=== PATIENT | male | born 1980 | race Caucasian/White ===

== ENCOUNTER 2017-07-07 01:51 | Emergency (ER) | payer OTHER ==
[2017-07-07] MEDS: IV NORMAL SALINE 1000ML BAG 1,000 ML IV (02:30)
[2017-07-07] MEDS: ONDANSETRON PF 4 MG/2 ML VIAL. IV ×2 (02:31→05:19)
[2017-07-07] MEDS: MORPHINE SULFATE 4 MG/ML DISP.SYRIN. IV/SQ (02:31)
[2017-07-07 02:44] LABS: ADD MAN DIFF? NO
[2017-07-07 02:46] LABS: BASO # 0.1 x10^3/uL (0.0-0.2); BASO % 1 % (0-3); EOS # 0.3 x10^3/uL (0.0-0.7); EOS % 2 % (0-3); HEMATOCRIT 45.2 % (39.0-53.0); LYMPH # 1.2 x10^3/uL (1.0-4.8); LYMPH % 9 % (24-48); MEAN CORPUSCULAR HEMOGLOBIN 26 pg (25-35); MEAN CORPUSCULAR HGB CONC 33 g/dL (31-37); MEAN CORPUSCULAR VOLUME 79 fL (79-100); MONO # 0.9 x10^3/uL (0.0-1.1); MONO % 7 % (0-9); NEUT # 11.3 x10^3uL (1.8-7.7); NEUT % 82 % (31-73); PLATELET COUNT 284 x10^3/uL (140-400); RED BLOOD COUNT 5.71 x10^6/uL (4.30-5.70); RED CELL DISTRIBUTION WIDTH 14.4 % (11.5-14.5); WHITE BLOOD COUNT 13.7 x10^3/uL (4.0-11.0)
[2017-07-07 02:59] LABS: ANION GAP 14 (6-14); BLOOD UREA NITROGEN 19 mg/dL (8-26); BUN/CREATININE RATIO 15 (6-20); CALCIUM 8.6 mg/dL (8.5-10.1); CARBON DIOXIDE 25 mmol/L (21-32); CHLORIDE 101 mmol/L (98-107); CREATININE 1.3 mg/dL (0.7-1.3); GFR 62.5; GLUCOSE 150 mg/dL (70-99); POTASSIUM 3.6 mmol/L (3.5-5.1); SODIUM 140 mmol/L (136-145)
[2017-07-07 03:04] LABS: ALBUMIN 3.4 g/dL (3.4-5.0); ALK PHOS 72 U/L (46-116); ALT (SGPT) 25 U/L (16-63); AST (SGOT) 20 U/L (15-37); TOTAL BILIRUBIN 0.4 mg/dL (0.2-1.0); TOTAL PROTEIN 6.7 g/dL (6.4-8.2)
[2017-07-07] MEDS ORDERED: CONTRAST GIVEN MC (03:45)
[2017-07-07] MEDS: IOHEXOL 300 MG/ML 100ML VIAL. IV (03:51)
[2017-07-07 03:58] LABS: BILIRUBIN,URINE NEGATIVE (NEG); CLARITY,URINE CLEAR; COLOR,URINE YELLOW; GLUCOSE,URINE NEGATIVE (NEG); NITRITE,URINE NEGATIVE (NEG); PH,URINE 8.5; PROTEIN,URINE 30 mg/dL (NEG-TRACE); UROBILINOGEN,URINE 0.2 mg/dL (0.2 mg/dL)
[2017-07-07 04:11] LABS: BACTERIA,URINE 0 /HPF (0-FEW); RBC,URINE RARE /HPF (0-2); SQUAMOUS EPITHELIAL CELL,UR OCC /LPF; WBC,URINE OCC /HPF (0-4)
[2017-07-07] MEDS: AZITHROMYCIN 250 MG TABLET. PO (04:43)
== END 2017-07-07 05:33 | disposition home or self-care (01) ==
LOC: ER 01:51
DX: R10.9 Unspecified abdominal pain (principal); J18.1 Lobar pneumonia, unspecified organism
CPT/HCPCS: 36415; 74177; 80053; 81001; 85025; 96361; 96365; 96375; 96376; 99285-25; J0690; J2270; J2405; J7030; Q0144; Q9967